=== PATIENT | male | born 1960 ===

== ENCOUNTER 2017-07-08 08:11 | Day surgery (SDC) | payer BC ==
[2017-07-08 08:39] VITALS: BMI 24.7
[2017-07-08 08:47] VITALS: O2SAT 100
[2017-07-08] MEDS ORDERED: Propofol 10 mg/ml Inj (20 ML) ONE ×2 (09:50→10:05)
[2017-07-08] MEDS ORDERED: Lactated Ringer's 1,000 ML IV ONE (10:45)
[2017-07-08 11:22] VITALS: TEMP 97
[2017-07-08 11:32] VITALS: BP 148/76; PULSE 78; RESP 20
== END 2017-07-08 11:15 | disposition home or self-care (01) ==
LOC: C.ENDO 08:11
PROVIDERS: ATTEND Internal Medicine Gastroenterology
DX: Z12.11 Encounter for screening for malignant neoplasm of colon (principal); E11.9 Type 2 diabetes mellitus without complications; Z79.84 Long term (current) use of oral hypoglycemic drugs; Z79.899 Other long term (current) drug therapy
CPT/HCPCS: 45378; 82948; J2704; J7120

== ENCOUNTER 2017-10-17 11:00 | Emergency (ER) | payer BC ==
[2017-10-17 11:19] VITALS: BMI 23.5
[2017-10-17 11:22] VITALS: O2SAT 99
--- NOTE | 2017-10-17 11:40 | C.PDOC ---
History Of Present Illness Pt is a 57 year old patient, whose PMHx includes Diabetes, presents to the ED after being referred by his clinical pharmacist. Patient was evaluated in a hospital in [place], [place] on 09/07 and was diagnosed with a diabetic foot ulcer infection to his right big toe. Patient received IV antibiotics during his five-day hospital stay and was discharged on 09/11 with a PICC line in place and advised to receive IV antibiotics for 6 weeks. Patient completed the 6-week IV antibiotic treatment yesterday and followed up with Dr. Herrera (clinical pharmacist) today for evaluation. Patient wants to know if PICC line still needs to be in place. Dr. Herrera stated that the infection has healed well and foot XR was unremarkable. Dr. Herrera states patient can switch to 875mg of Augmentin PO TID , but wishes for patient to be evaluated by infectious disease prior to removing PICC line (if ID says it is OK for PICC to be removed, then it can be removed). Patient denies fever, chills, pain, and has no complaints at this time. Patient has past social history of smoking and family history of Diabetes. PMD: Dr. Barnett Time Seen by Provider: 10/17/17 11:37 Chief Complaint (Nursing): Lower Extremity Problem/Injury History Per: Patient History/Exam Limitations: no limitations Onset/Duration Of Symptoms: Days Current Symptoms Are (Timing): Better Additional History Per: Patient Past Medical History Reviewed: Historical Data, Nursing Documentation, Vital Signs Vital Signs: Last Vital Signs Temp 98 F 10/17/17 12:51 Pulse 74 10/17/17 12:51 Resp 16 10/17/17 12:51 BP 130/80 10/17/17 12:51 Pulse Ox 99 10/17/17 13:28 - Medical History PMH: Diabetes Surgical History: No Surg Hx Family History: States: Diabetes - Social History Hx Tobacco Use: Yes (former smoker) Hx Alcohol Use: No Hx Substance Use: No - Immunization History Hx Tetanus Toxoid Vaccination: Yes Hx Influenza Vaccination: Yes Hx Pneumococcal Vaccination: Yes Review Of Systems Constitutional: Negative for: Fever, Chills Physical Exam - Physical Exam Appears: Non-toxic, No Acute Distress Skin: Normal Color, Warm, Dry Head: Atraumatic, Normacephalic Eye(s): bilateral: Normal Inspection Ear(s): Bilateral: Normal Nose: Normal Oral Mucosa: Moist Lips: Normal Appearing Neck: Normal Chest: Symmetrical, No Deformity, No Tenderness Cardiovascular: Rhythm Regular, No Murmur Respiratory: Normal Breath Sounds, No Rales, No Rhonchi, No Wheezing Extremity: Normal ROM, Capillary Refill (less than 2 seconds ), Other (well- healing ulcer to right great toe. no erythema or warmth) Pulses: Right Dorsalis Pedis: Normal Neurological/Psych: Oriented x3, Normal Speech, Normal Cognition Gait: Steady ED Course And Treatment O2 Sat by Pulse Oximetry: 99 (on RA) Pulse Ox Interpretation: Normal Medical Decision Making Medical Decision Making: Impression: healing diabetic foot infection Initial Plan: Will call clinical pharmacist and Dr. Barnett Progress: Case discussed with clinical pharmacist Dr. Herrera--recommends d/c on oral Augmentin and for ID eval as outpatient. Spoke to patient's PMD, Dr. Barnett, and he recommends pt follow up with ID specialist Dr. Lobato. Disposition Counseled Patient/Family Regarding: Diagnosis, Need For Followup, Rx Given - Disposition Referrals: Sylvester Wynne MD [Staff Provider] - Disposition: HOME/ ROUTINE Disposition Time: 12:23 Condition: STABLE Additional Instructions: Mr. Cramer, thank you for letting us take care of you today. Return to the ER if any problems. Take the antibiotic listed below as prescribed. Please call Infectious Disease doctor (Dr. Lobato) at the phone number listed below. Infectious Disease specialist will need to make a determination if your PICC Line can be removed or if you need additional intravenous antibiotics. (Note: the foot doctor --Dr. Herrera--says the infection seems to be cleared up and your foot is much improved) Prescriptions: Amoxicillin/Clavulanate [Augmentin 875 MG-125 MG] 1 tab PO TID #21 tab Instructions: Diabetes and Infections, Foot Care for Diabetics Forms: [employer] (Palauan) Print Language: OMANI - POA Present On Arrival: None - Clinical Impression Clinical Impression: Diabetic infection of right foot - Scribe Statement The provider has reviewed the documentation as recorded by the Scribe (Nasrin Amanda) Provider Attestation: All medical record entries made by the Scribe were at my direction and personally dictated by me. I have reviewed the chart and agree that the record accurately reflects my personal performance of the history, physical exam, medical decision making, and the department course for this patient. I have also personally directed, reviewed, and agree with the discharge instructions and disposition.
[2017-10-17 12:52] VITALS: BP 130/80; PULSE 74; RESP 16; TEMP 98
== END 2017-10-17 12:51 | disposition home or self-care (01) ==
LOC: C.ER 11:00
DX: E11.621 Type 2 diabetes mellitus with foot ulcer (principal); L97.519 Non-pressure chronic ulcer of other part of right foot with unspecified severity